=== PATIENT | female | born 1960 | race Caucasian/White ===

== ENCOUNTER → 2016-11-13 | Outpatient (CLI) | payer OTHER ==
--- NOTE | 2016-11-13 09:06 | US ---
Transabdominal and Endovaginal Pelvic Ultrasound Clinical History: 56-year-old female presenting for follow-up of a complex right ovarian cyst identif ied in 2014. The patient had a history of breast cancer in 2006 and is not on hormone replacement the rapy. She has been postmenopausal since 2006, and is . ICD 10 Diagnostic Code: N 83.209. TECHNIQUE: A curvilinear 5 MHz transducer was initially used to sonographically evaluate the pelvis, using a full urinary bladder as a window. To better assess the uterine architecture and the adnexal s tructures, endovaginal pelvic sonography was also performed. Color and spectral Doppler were used. Comparison: Outside pelvic sonography, dated 04/03/2015 and 12/07/2014. Findings: Transabdominal Pelvic Sonography: The uterus is normal in size, shape, and position, measuring 7.3 x 4.9 x 3.3 cm. The visualized aspects of the urinary bladder are normal. The right and left adnexal r egions are obscured by bowel gas. There is no free fluid. Endovaginal Pelvic Sonography: There is some endometrial fluid present. The aggregate bilayer endomet rial diameter is 2.4 mm. There is an intervertebral-subserosal right uterine body leiomyoma measuring 1.1 x 0.7 x 1.3 cm. The right ovary measures 1.4 x 1.5 x 1.5 cm, and contains a 0.8 x 1.0 x 0.9 cm c omplex cyst with some peripheral echogenic calcifications. As a point of reference on the December 07 015 study, this measured 1.4 x 1.2 x 1.2 cm, and on the study of April 03, 2015, this measured 1.4 x 1 .1 x 1.3 cm cm. The left ovary was not identified. There are no new cystic or solid adnexal masses id entified. Normal arterial blood flow is with a resistive index of 0.54 in the right ovary. There is n o free fluid in the pelvic cul-de-sac. There are some mildly prominent serpentine-shaped venous varic es in the adnexal regions, measuring 5.4 mm on the right on the left. Impression: 1. Compared to studies of 12/07/2014 and 04/03/2015, there is a persistent complex hemorrhagic right ova johanna cyst only measuring 10 mm in greatest diameter today, and previously measuring up to 14 mm in jovana. Presuming that the serum CA-125 levels are negative, and given the lack of significant interv al change, annual sonographic surveillance is suggested. 2. There is a small right uterine body intramural/subserosal fibroid. 3. Small amount of endometrial fluid with a normal aggregate bilayer endometrial diameter. 4. Pelvic venous congestion.
== END ==
LOC: FIMAGING 07:48
PROVIDERS: ATTEND Obstetrics & Gynecology
DX: N83.201 Unspecified ovarian cyst, right side (principal); D25.9 Leiomyoma of uterus, unspecified; N94.89 Other specified conditions associated with female genital organs and menstrual cycle

== ENCOUNTER → 2018-09-02 | Outpatient (CLI) | payer OTHER | LOC: FIMAGING 07:29 | PROVIDERS: ATTEND Obstetrics & Gynecology | DX: N83.201 Unspecified ovarian cyst, right side (principal); D25.9 Leiomyoma of uterus, unspecified ==